=== PATIENT | female | born 1955 | race African-American/Black ===

== ENCOUNTER 2025-05-13 14:15 | Emergency (ER) | payer BC, MEDICAID ==
[~2025-05-13] VITALS: Ht 175.3 cm; Wt 104.0 kg
[2025-05-13 14:29] VITALS: TEMP 37.1; O2SAT 100
[2025-05-13 17:28] VITALS: BP 161/95; PULSE 69; RESP 18; O2SAT 100
== END 2025-05-13 17:29 | disposition home or self-care (01) ==
LOC: ER 14:15
DX: I10 Essential (primary) hypertension (principal); I87.1 Compression of vein
CPT/HCPCS: 93971; 99284